=== PATIENT | female | born 1985 | race African-American/Black ===

== ENCOUNTER 2020-08-16 19:35 | Emergency (ER) | payer MEDICAID ==
[~2020-08-16] VITALS: Ht 160 cm; Wt 70.0 kg
[2020-08-16 21:10] VITALS: BP 128/89
== END 2020-08-16 21:11 | disposition home or self-care (01) ==
LOC: ER 19:35
DX: J02.9 Acute pharyngitis, unspecified (principal); R05 Cough; Z20.822 Contact with and (suspected) exposure to COVID-19; R03.0 Elevated blood-pressure reading, without diagnosis of hypertension; Z88.6 Allergy status to analgesic agent; Z88.8 Allergy status to other drugs, medicaments and biological substances
CPT/HCPCS: 87635; 99283; C9803

== ENCOUNTER 2024-01-18 22:40 | Emergency (ER) | payer MEDICAID ==
[~2024-01-18] VITALS: Ht 160 cm; Wt 87.0 kg
[2024-01-18 23:11] VITALS: BP 140/94; PULSE 88; RESP 20; TEMP 98.3; O2SAT 100
== END 2024-01-19 01:27 | disposition left against medical advice (07) ==
LOC: ER 22:40
DX: K08.89 Other specified disorders of teeth and supporting structures (principal); Z53.21 Procedure and treatment not carried out due to patient leaving prior to being seen by health care provider